=== PATIENT | male | born 1985 | race Caucasian/White ===

== ENCOUNTER 2020-12-28 11:45 | Emergency (ER) | payer MEDICAID ==
[~2020-12-28] VITALS: Ht 167.6 cm; Wt 95.3 kg
[2020-12-28 12:06] VITALS: BP_SYST 153
--- NOTE | 2020-12-28 12:12 | NUR ---
TRIAGED AND ASKED TO WAIT IN THE WAITING ROOM
--- NOTE | 2020-12-28 12:30 | NUR ---
PT ARRIVES FROM HOME W/ LEFT HIP 11/03, INTERMITTENT, DULL X 2 WEEKS.
--- NOTE | 2020-12-28 14:00 | NUR ---
ER at bedside examining patient.
--- NOTE | 2020-12-28 15:29 | NUR ---
Patient to ER bed H2 to gown for evaluation. Side rails up.
[2020-12-28] MEDS ORDERED: NAPR-690 PO (15:39)
--- NOTE | 2020-12-28 15:47 | NUR ---
Patient given written and verbal discharge instructions and verbalizes understanding. ER MD discussed with patient the results and treatment provided. Patient in stable condition. ID arm band removed. Rx of NAPROXEN given. Patient educated on pain management and to follow up with PMD. Pain Scale 3/10. Opportunity for questions provided and answered. Medication side effect fact sheet provided.
[2020-12-28 16:00] VITALS: BP_SYST 153
== END 2020-12-28 15:47 | disposition home or self-care (01) ==
LOC: SED 11:45
DX: S73.101A Unspecified sprain of right hip, initial encounter (principal); Z79.899 Other long term (current) drug therapy; X50.1XXA Overexertion from prolonged static or awkward postures, initial encounter; Y93.89 Activity, other specified; Y92.89 Other specified places as the place of occurrence of the external cause; Y99.8 Other external cause status
CPT/HCPCS: 73502; 99283

== ENCOUNTER 2020-12-29 10:55 | Emergency (ER) | payer MEDICAID ==
[~2020-12-29] VITALS: Ht 167.6 cm; Wt 95.3 kg
[~2020-12-29 10:55] MED LIST: NAPR-690 PO
[2020-12-29 10:58] VITALS: BP_SYST 150
--- NOTE | 2020-12-29 11:04 | NUR ---
Patient to ER bed 1 to gown for evaluation. Side rails up. Report given to [facility].
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
--- NOTE | 2020-12-29 11:12 | NUR ---
Pt was seen here yesterday for same reason. Had an X-ray and was discharged. Possible right femur fracture.
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
--- NOTE | 2020-12-29 11:18 | NUR ---
SUKHDEV Sharma at bedside examining patient.
--- NOTE | 2020-12-29 12:34 | NUR ---
Patient transported to radiology via wheelchair, accompanied by tech.
--- NOTE | 2020-12-29 12:51 | NUR ---
Pt back from CT and placed back in [facility].
--- NOTE | 2020-12-29 13:43 | NUR ---
Pt resting in gurney with side rails up no distress noted at this time
[2020-12-29 15:14] VITALS: BP_SYST 141
--- NOTE | 2020-12-29 15:15 | NUR ---
Patient given written and verbal discharge instructions and verbalizes understanding. ER MD discussed with patient the results and treatment provided. Patient in stable condition. ID arm band removed. Patient educated on pain management and to follow up with PMD. Pain Scale 0/10. Opportunity for questions provided and answered. Medication side effect fact sheet provided.
== END 2020-12-29 15:14 | disposition home or self-care (01) ==
LOC: SED 10:55
DX: M16.11 Unilateral primary osteoarthritis, right hip (principal); Z87.81 Personal history of (healed) traumatic fracture; Z79.899 Other long term (current) drug therapy
CPT/HCPCS: 72192-TC; 76376; 99284